=== PATIENT | female | born 1955 | race Caucasian/White ===

== ENCOUNTER 2023-02-19 10:33 | Outpatient (CLI) | payer MEDICARE, BC | END 2023-02-19 10:34 | disposition home or self-care (01) | LOC: CSHMAMMO 10:33 | PROVIDERS: ATTEND Internal Medicine Gastroenterology | DX: Z12.31 Encounter for screening mammogram for malignant neoplasm of breast (principal); Z78.0 Asymptomatic menopausal state | CPT/HCPCS: 77063; 77067; 77080 ==

== ENCOUNTER 2024-02-27 10:57 | Outpatient (CLI) | payer MEDICARE, BC | END 2024-02-27 10:58 | disposition home or self-care (01) | LOC: CSHMAMMO 10:57 | DX: Z12.31 Encounter for screening mammogram for malignant neoplasm of breast (principal) | CPT/HCPCS: 77063; 77067 ==

== ENCOUNTER 2025-04-02 09:15 | Outpatient (CLI) | payer MEDICARE, BC | END 2025-04-02 09:16 | disposition home or self-care (01) | LOC: CSHMAMMO 09:15 | PROVIDERS: ATTEND Internal Medicine Gastroenterology | DX: Z12.31 Encounter for screening mammogram for malignant neoplasm of breast (principal); N64.89 Other specified disorders of breast | CPT/HCPCS: 77063; 77067 ==

== ENCOUNTER 2025-04-19 08:43 | Outpatient (CLI) | payer MEDICARE, BC | END 2025-04-19 08:44 | disposition home or self-care (01) | LOC: CSHMAMMO 08:43 | PROVIDERS: ATTEND Family Medicine | DX: R92.8 Other abnormal and inconclusive findings on diagnostic imaging of breast (principal) | CPT/HCPCS: 76642; 77065; G0279 ==